=== PATIENT | female | born 1985 | race Caucasian/White ===

== ENCOUNTER → 2024-11-07 10:40 | Outpatient (REF) | payer OTHER, SELFPAY | LOC: HWRAD 10:40 | PROVIDERS: ATTENDING PHYSICIAN Internal Medicine | DX: G89.29 Other chronic pain (principal); M54.50 Low back pain, unspecified; R39.15 Urgency of urination | CPT/HCPCS: 72100 ==

== ENCOUNTER 2025-06-29 00:57 | Emergency (ER) | payer OTHER, SELFPAY ==
[2025-06-29 01:08] VITALS: BP 123/88
[2025-06-29 01:13] VITALS: BP 111/83
[2025-06-29 01:14] VITALS: BP 111/83
[2025-06-29 01:23] VITALS: BMI 25.4
[2025-06-29 01:49] LABS: Hematocrit 39.7 % (37.0-47.0); Hemoglobin 13.1 g/dL (12.0-16.0); Mean Corp Hgb Conc. 33.0 g/dL (33.0-37.0); Mean Corpuscular Volume 81.5 fL (81.0-99.0); Nucleated Red Blood Cells % 0 %; Platelet Count 304 10^3/uL (130-400); Red Cell Dist. Width 13.7 % (11.5-14.5)
[2025-06-29 01:57] LABS: INR 0.88; PT 12.5 Sec (11.4-14.6)
[2025-06-29 01:58] LABS: APTT 26.6 Sec (23.4-35.0)
[2025-06-29 02:00] VITALS: BP 99/76
[2025-06-29 02:09] LABS: ALT (SGPT) 15 U/L (0-35); AST (SGOT) 21 U/L (14-36); Albumin 4.6 g/dl (3.5-5.0); Alkaline Phosphatase 43 U/L (38-126); Blood Urea Nitrogen 14 mg/dl (7-17); Calcium 9.3 mg/dl (8.4-10.2); Carbon Dioxide 30 mmol/L (22-30); Chloride 105 mmol/L (98-107); Estimated Creatinine Clearance 76 ml/min; Glucose 95 mg/dl (70-99); Magnesium 2.0 mg/dl (1.6-2.3); Potassium 3.8 mmol/L (3.5-5.1); Sodium 140 mmol/L (135-145); Total Protein 7.4 g/dl (6.3-8.2); eGFR > 60.00
[2025-06-29 02:18] LABS: D-Dimer < 0.27 ug/mlFEU (0.00-0.50)
[2025-06-29 02:21] LABS: Troponin I < 0.012 ng/ml
[2025-06-29 02:39] LABS: TSH 7.41 uIU/ml (0.47-4.68)
[2025-06-29] MEDS: DUONEB 3 ML INH (03:06)
[2025-06-29] MEDS: DECADRON 10 MG PO (03:29)
[2025-06-29 04:44] VITALS: BP 103/68
[2025-06-29 05:27] LABS: Troponin I < 0.012 ng/ml
--- NOTE | 2025-06-29 06:13 | ED.GENMED ---
History of Present Illness
General
Chief Complaint: Chest Pain
Source: patient
Exam Limitations: none
Time Seen by Provider: 06/29/25 01:21
Nursing documentation reviewed up to this point in time: agreed with
History of Present Illness
History of Present Illness:
Note:
CHIEF COMPLAINT(S)
- Chest pain
HISTORY OF PRESENT ILLNESS
The patient is a 40-year-old female presenting with left-sided chest pain, which began suddenly when she bent over to put on her pajama pants. The pain was described as very sharp and localized to one spot under her left breast, initially
exacerbated by inhalation. Currently, the pain is reported as dull and worsens upon taking a deep breath. The patient noted significant fatigue throughout the day, which is unusual for her. Two days prior to this event, she experienced a fleeting
sensation described as 'fluttering' like 'butterfly wings' in her chest, which lasted less than a minute. This episode was perceived as unusual but resolved without further incident.
The patient denies radiation of the pain and would have typically ignored the discomfort if not for its persistent nature. The intensity of the initial sharp pain and accompanying symptoms prompted her to seek medical evaluation.
PAST MEDICAL AND SURGICAL HISTORY
The patient denies having any chronic medical conditions and does not take medications regularly, stating medication use only during her menstrual cycle.
FAMILY HISTORY
A positive family history of cardiac issues is noted. Her fathers side includes a grandfather who reportedly had a congenital heart defect, and her father has a history of high cholesterol and hypertension. Her paternal grandmother had a minor heart
attack. On her mothers side, her grandfather suddenly from a heart attack, and her grandmother had high blood pressure.
SOCIAL HISTORY
The patient reports occasional use of marijuana during high school but denies current tobacco use. She consumes alcohol regularly, about one drink per day with dinner. 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
reports potential exposure to dust and chemicals, albeit mitigated by protective measures, according to her description.
REVIEW OF SYSTEMS
- Respiratory: Pain on deep inhalation, no radiation.
- General: Unusual fatigue reported today.
- Cardiovascular: Brief episodes of chest fluttering noted two days ago.
PHYSICAL EXAM
General: Alert, no acute distress.
Skin: Warm, dry.
Head: Normocephalic, atraumatic.
Neck: Supple, trachea midline.
Eye Ears, Nose, Mouth and Throat: Oral mucosa moist.
Cardiovascular: Normal peripheral perfusion, No edema.
Respiratory: Respirations are non-labored.
Gastrointestinal: Abdomen nondistended.
Back: Normal range of motion, Normal alignment.
Musculoskeletal: Normal range of motion, normal strength.
Neurological: Alert and oriented to person, place, time, and situation, No focal neurological deficit observed.
Psychiatric: Cooperative, appropriate mood & affect.
PLAN
1. Performed a D-dimer blood test to evaluate for possible blood clots.
2. Discussed the potential need for further testing, depending on D-dimer results.
DIFFERENTIAL DIAGNOSIS
The Differential Diagnosis includes, in no particular order and is not limited to:
1. Costochondritis
2. Pulmonary embolism
3. Myocardial infarction
4. Aortic dissection
5. Pneumothorax
6. Gastroesophageal reflux disease
7. Musculoskeletal pain
8. Pericarditis
9. Esophageal spasm
10. Anxiety or panic attack
Disposition:
SUMMARY OF ENCOUNTER
The patient is a 40-year-old female who presented with a sudden onset of left-sided chest pain, occurring when she bent over to put on pajama pants. The pain was initially sharp and localized, becoming dull and worse with deep breaths. The patient
also reported a fleeting sensation of 'fluttering' in the chest two days prior. Given her family history of cardiac issues, a D-dimer test was performed to screen for possible blood clots, and it was negative. A chest X-ray was conducted and
interpreted as negative as well. An independent review of her symptoms, history, and negative test results suggested a non-cardiac cause for her symptoms. In the emergency department, she was administered a single dose of steroids to help alleviate
chest discomfort, and she was advised to take non-steroidal anti-inflammatory drugs (NSAIDs) for pain management at home.
DISPOSITION
The patient is to be discharged home.
ASSESSMENT
The patients symptoms, negative D-dimer, and negative chest X-ray suggest a non-cardiac origin for the chest pain, potentially related to musculoskeletal causes or costochondritis.
PLAN
The current plan includes home management with NSAIDs for pain relief. The patient was advised to monitor for any worsening symptoms, such as increased chest pain, difficulty breathing, or any new symptoms that would require immediate medical
attention.
INDEPENDENT REVIEW OF LABS AND INTERPRETATION OF TESTS
My independent review of the D-dimer is negative.
My independent interpretation of the chest X-ray is negative for acute pathology.
MEDICATION RECONCILIATION
The patient received a single dose of steroids in the emergency department. She was advised to take NSAIDs for pain management at home.
MEDICAL DECISION MAKING
1. Number and Complexity of Problems Addressed: Chronic conditions affecting care include family history of cardiac issues. Differential Diagnosis includes costochondritis, pulmonary embolism, myocardial infarction, aortic dissection, pneumothorax,
gastroesophageal reflux disease, musculoskeletal pain, pericarditis, esophageal spasm, and anxiety or panic attack.
2. Data:
Category 1:
- My independent review of the D-dimer is negative.
- My independent interpretation of the chest X-ray is negative for acute pathology.
3. Risk:
Consideration of Admission/Observation: Escalation of care including admission/observation was considered given the complexity and risk of the patients presenting complaint, exam findings, and/or their underlying comorbidities. However, ultimately I
feel the patient is safe for outpatient management with close follow-up. Reasoning: Work-up reassuring, does not reveal any acute life/organ threatening processes, patients symptoms well-controlled upon reevaluation, reexamination is reassuring,
vitals are stable, patient agreeable with discharge, reliable for follow-up.
DIAGNOSIS
Diagnosis includes musculoskeletal chest pain, possibly related to costochondritis or strain. Potential Diagnosis: R07.89 (Other chest pain)
Past History
Past History
ED Past Medical History: None
ED Past Surgical History: None
Social History
Tobacco: Non-smoker
Course
Orders/Labs/Results
Orders:
Orders
06/29/25 00:58
EKG [Electrocardiogram (*1)] Urgent
Reason for Study: Chest Pain
EKG- Treatment ONCE
06/29/25 01:30
Electrocardiogram (*1) Q3H
Reason for Study: Chest Pain
Complete Blood Count/With Diff Urgent
Comprehensive Metabolic Panel Urgent
D-Dimer Urgent
Magnesium Urgent
PTT Urgent
Prothrombin Time Urgent
TSH Urgent
Troponin I Urgent
06/29/25 02:42
CR Chest - 2 Views Urgent
Comment:
Reason For Exam: cp
06/29/25 02:47
Dexamethasone Pf [Decadron] 10 mg PO NOW STA
Ipratropium/Albuterol Sulfate [Duoneb] 3 ml INH R NOW ONE
06/29/25 04:40
Troponin I Urgent
Abnormal Lab Results
06/29/25
01:30
MCH 26.9 L pg
(27.0-31.0)
Absolute Monos (auto) 0.8 H 10^3/uL
(0.1-0.6)
Monocytes % 9.4 H %
(1.7-9.3)
TSH 7.41 H uIU/ml
(0.47-4.68)
06/29/25 01:30
06/29/25 01:30
Vital Signs
Initial and Last Documented VS:
Initial Vital Signs
Resp
14
06/29/25 01:01
Last Documented Vital Signs
Temp Pulse Resp BP Pulse Ox
97.8 F 76 20 103/68 97
06/29/25 01:08 06/29/25 04:44 06/29/25 04:44 06/29/25 04:44 06/29/25 04:44
*Pulse Oximetry
SaO2: 97
Oxygen Mode of Delivery: Room air
Patient hypoxic: no
*Critical Care Note
Total Time (30-74mins, 75-104mins- exclusive of procedures): Not Applicable
ED Attending Note
-
Portions of this chart may have been created with voice recognition software.� Occasional wrong word or��sound alike� substitutions may have occurred due to the inherent limitations of voice recognition software.
Discharge Plan
Departure
Patient Disposition: Home (Routine Discharge)
Date of Disposition: 06/29/25
Time of Disposition: 06:14
Patient with high blood pressure during this ER visit?: Yes
Condition: Good
Discharge Problem:
Chest pain
Instructions: Chest Pain PCP Follow Up, BLOOD PRESSURE
Prescriptions:
No Action
No Meds
diazepam 5 MG tablet
5 mg PO TIDPRN PRN (Reason: spasm) Qty: 12 0RF
Referrals:
Pam Silva DO [Family Provider, Family Practice]
Activity Restrictions/Additional Instructions:
Thank You for choosing [facility].
It was a pleasure meeting you and taking part in your care. We hope for your continued healing and wellness.
Please read discharge instructions in their entirety. However, they are for general education and may not describe your exact diagnosis at discharge. Information on your ER visit and medical conditions were discussed with you along with appropriate
follow up information...
If indicated, please take your medications as instructed and indicated on discharge paperwork.
Please schedule a follow up appointment as directed. Call to schedule an appointment
Please return to the emergency department with ANY change in, persisting, or worsening of symptoms. If any of your symptoms do not improve, or persist, or become more severe within 6-12 hours, please return to the emergency department for further
care.
Please return to the emergency department if you develop a headache, neck pain/stiffness, fever greater than 100.4F, chest pain, shortness of breath, persistent nausea, vomiting, slurred speech, difficulty walking, numbness/tingling, weakness, signs
of infection or any other symptoms that are worrisome to you.
If you have any questions or concerns please do not hesitate to call the Hospital at or E-mail me directly at [email or web address]
Interventions
Interventions:
*Risk Screen - Suicide Last Done: 06/29/25 01:01
*General Assessment Last Done: 06/29/25 01:23
*Neglect/Abuse Screening Last Done: 06/29/25 01:23
*ED- Fall Risk Assessment Last Done: 06/29/25 01:23
*ED COVID-19 Vaccine History Last Done: 06/29/25 01:23
ED- Cardiac Assessment Last Done: 06/29/25 01:35
Discharge Date and Time
Print Language: LATVIAN
== END 2025-06-29 06:37 | disposition home or self-care (01) ==
LOC: EMR 00:57
PROVIDERS: EMERGENCY PHYSICIAN Student in an Organized Health Care Education/Training Program; FAMILY PHYSICIAN Internal Medicine
DX: R07.89 Other chest pain (principal); N64.4 Mastodynia
CPT/HCPCS: 99285; 94640; 71046; 80053; 83735; 84443; 84484; 85025; 85379; 85610; 85730; 93005